=== PATIENT | female | born 1990 | race Caucasian/White ===

== ENCOUNTER 2018-08-17 11:54 | Inpatient (IN) | payer MEDICAID ==
[~2018-08-17] VITALS: Ht 162.6 cm; Wt 85.0 kg
[~2018-08-17 11:54] MED LIST: ALBU8.5H5 INH; ALBU8.5H8; BECL8.7A; GUAI120S25 PO; LORA10TA3 PO
[2018-08-17 12:07] VITALS: Ht 162.6 cm; Wt 85.0 kg
[2018-08-17 12:08] VITALS: BP 120/70; PULSE 97; RESP 18
[2018-08-17] MEDS ORDERED: MAGNESIUM SULFATE 4 GM/100 ML 100 ML IV ONE (14:30)
--- NOTE | 2018-08-17 15:47 | HP ---
Date/Time of Note Date/Time of Note DATE: 08/17/18 TIME: 15:45 OB - History Hx of Present Chief Complaint: pelvic pain Estimated Due Date: Nov 20, 2018 : 1 Para: 0 Spontaneous : 0 Therapeutic : 0 Care: Good Care Ultrasounds: Normal mid trimester US Obstetrical Complications: None Medical Complications: None Past Family/Social History * Past Medical, Surgical, Family and Obstetric Histories reviewed from chart. OB Admission Exam Vital Signs Vital Signs Vital Signs Date Temp Pulse Resp B/P (MAP) Pulse Ox O2 O2 Flow FiO2 Time Delivery Rate 08/17/18 98.2 97 18 120/70 Room Air 12:08 (87) Physical Exam HEENT: WNL Heart: Rhythm Normal Lungs: Clear, Equal Abdomen: WNL Extremities: Normal Reflexes: Normal Membranes: Intact Heart Rate: 120's Accelerations: Accelerations Present Decelerations: No Decelerations Varibility: Moderate Last 72 hours Lab Results CBC & BMP 08/17/18 12:49 OB Assessment/Plan Reason for admission: labor Plan: Other Other plan: Admit IV magnesium sulfate IM betamethasone AIMEE YEUNG MD Aug 17, 2018 15:47
[2018-08-17] MEDS: BETAMET NA PHOS/AC(6 MG/ML) 2 ML INJ SYG IM SCH (16:10)
[2018-08-17] MEDS: MAGNESIUM SULFATE 20 GM/500 ML 500 ML IV SCH (16:40)
--- NOTE | 2018-08-17 16:43 | QN ---
Documentation Comment Cervix closed Cervical length 2.6 cm AIMEE YEUNG MD Aug 17, 2018 16:43
[2018-08-17] MEDS ORDERED: PREN-99 PO (20:57)
[2018-08-18] MEDS: MAGNESIUM SULFATE 20 GM/500 ML 500 ML IV SCH ×3 (02:17→22:01)
[2018-08-18] MEDS: LACTATED RINGER'S 1,000 ML IV SCH ×2 (05:47→22:02)
[2018-08-18] MEDS: PRENATAL VITAMIN PO SCH (10:23)
[2018-08-18] MEDS: FERROUS SULFATE (EC) 325 MG TAB PO SCH (10:23)
[2018-08-18] MEDS: BETAMET NA PHOS/AC(6 MG/ML) 2 ML INJ SYG IM SCH (17:31)
--- NOTE | 2018-08-18 19:36 | QN ---
Documentation Comment No complaint Afebrile VSS Strip Appropriate for GA Stable Continue with present care AIMEE YEUNG MD Aug 18, 2018 19:36
[2018-08-19] MEDS: FERROUS SULFATE (EC) 325 MG TAB PO SCH (08:06)
[2018-08-19] MEDS: PRENATAL VITAMIN PO SCH (08:06)
[2018-08-19] MEDS: LACTATED RINGER'S 1,000 ML IV SCH ×2 (08:07→22:00)
[2018-08-19] MEDS: MAGNESIUM SULFATE 20 GM/500 ML 500 ML IV SCH (08:14)
--- NOTE | 2018-08-19 08:16 | QN ---
Documentation Comment No complaint Afebrile VSS Strip Appropriate for GA Stable D/C magnesium sulfate 24 hours after second dose of betamethasone AIMEE YEUNG MD Aug 19, 2018 08:16
[2018-08-20] MEDS: PRENATAL VITAMIN PO SCH (09:05)
[2018-08-20] MEDS: FERROUS SULFATE (EC) 325 MG TAB PO SCH (09:05)
--- NOTE | 2018-08-20 18:49 | DS ---
Date/Time of Note Date/Time of Note DATE: 08/20/18 TIME: 18:48 Obstetrical Discharge Record Final Diagnosis Final Diagnosis: not delivered Other Final Diagnosis Threatened labor Complications Tocolytics: Magnesium Sulfate Condition on Discharge Physical Assessment Voiding: Yes Bowel Movement: Yes Calf Tenderness: No Patient Condition: Stable AIMEE YEUNG MD Aug 20, 2018 18:49
== END 2018-08-20 19:05 | disposition home or self-care (01) | DRG 833 ==
LOC: L-D 11:54 → OBT 11:54 → L-D 14:15 → PP1 08-18 01:07
PROVIDERS: ADMIT Obstetrics & Gynecology; ATTEND Obstetrics & Gynecology
DX: O47.02 False labor before 37 completed weeks of gestation, second trimester (principal); Z3A.25 25 weeks gestation of pregnancy
CPT/HCPCS: 76817; 76818; 80053; 81001; 81003; 83735; 85025; 87086; G0463; J0702; J3475; J7120